=== PATIENT | female | born 1955 | race Caucasian/White ===

== ENCOUNTER 2016-09-05 13:38 | Emergency (ER) | payer BC ==
[2016-09-05] MEDS ORDERED: Ibuprofen TAB* 600 MG PO ONE (15:14)
--- NOTE | 2016-09-05 15:40 | UC ---
UC General HPI - HPI Summary HPI Summary: FLu like symptoms started 1 day ago. fatique, [place] , body aches, woke with a fever this morning. currently febrile. lots of ear pressure. - History of Current Complaint Chief Complaint: UCGeneralIllness Stated Complaint: flu sxs Time Seen by Provider: 09/05/16 15:14 Hx Obtained From: Patient Onset/Duration: Sudden Onset, Lasting Days Timing: Constant Onset Severity: Moderate Current Severity: Severe Associated Signs & Symptoms: Positive: Cough, Fever, Headache - Allergy/Home Medications Allergies/Adverse Reactions: Allergies Allergy/AdvReac Type Severity Reaction Status Date / Time Erythromycin Allergy Intermediate Diarrhea Verified 09/05/16 15:03 environmental Allergy Eyes Uncoded 09/05/16 15:03 Itchy/Swollen/Red/Watery PMH/Surg Hx/FS Hx/Imm Hx Previously Healthy: Yes Endocrine History Of: Reports: Thyroid Disease - hypothyroid Denies: Diabetes, Hyperthyroidism, Hypothyroidism, Dyslipidemia Cardiovascular History Of: Denies: Cardiac Disorders, Hypertension, Pacemaker/ICD, Myocardial Infarction , Congestive Heart Failure, Atrial Fibrillation, Deep Vein Thrombosis, Bleeding Disorders Respiratory History Of: Reports: Asthma - noted, recent exacerbation. Finished prednisone taper and abx recently. Denies: COPD, Bronchitis, Pneumonia, Pulmonary Embolism GI/ History Of: Denies: Gastroesophageal Reflux, Ulcer, Gastrointestinal Bleed, Gall Bladder Disease, Kidney Stones, Diverticulitis, Renal Disease, Urosepsis Neurological History Of: Denies: TIA, CVA, Dementia, Seizures, Migraine Psychological History Of: Denies: Anxiety, Depression, Bipolar Disorder, Schizophrenia, Post Traumatic Stress Disorder Cancer History Of: Denies: Lung Cancer, Colorectal Cancer, Breast Cancer, Prostate Cancer, Cervical Cancer Other History Of: Negative For: HIV, Hepatitis B, Hepatitis C, Anticoagulant Therapy - Surgical History Surgical History: Yes Surgery Procedure, Year, and Place: Tonsillectomy. . TUBE RIGHT- TYMPANIC - Family History Known Family History: Positive: Cardiac Disease, Hypertension Negative: Diabetes - Social History Alcohol Use: None Substance Use Type: None Smoking Status (MU): Never Smoked Tobacco Review of Systems Constitutional: Fever, Chills, Fatigue Skin: Negative Eyes: Negative ENT: Sore Throat, Ear Ache Respiratory: Cough Cardiovascular: Negative Gastrointestinal: Negative Genitourinary: Negative Motor: Negative Neurovascular: Negative Musculoskeletal: Myalgia Neurological: Headache Psychological: Negative All Other Systems Reviewed And Are Negative: Yes Physical Exam Triage Information Reviewed: Yes Appearance: Well-Nourished, Ill-Appearing, Pain Distress Vital Signs: Initial Vital Signs Temp 103.0 F 09/05/16 15:12 Pulse 90 09/05/16 15:12 Resp 16 09/05/16 15:12 BP 172/72 09/05/16 15:12 Pulse Ox 96 09/05/16 15:12 Vital Signs Reviewed: Yes Eye Exam: Normal Eyes: Positive: Conjunctiva Clear ENT: Positive: Hearing grossly normal, Pharyngeal erythema, Nasal congestion, TM bulging, TM red Dental Exam: Normal Neck exam: Normal Neck: Positive: Supple, Nontender, No Lymphadenopathy Respiratory Exam: Normal Respiratory: Positive: Chest non-tender, Lungs clear, Normal breath sounds Cardiovascular Exam: Normal Cardiovascular: Positive: RRR, No Murmur, Pulses Normal Abdominal Exam: Normal Abdomen Description: Positive: Nontender, No Organomegaly, Soft Bowel Sounds: Positive: Present Musculoskeletal Exam: Normal Neurological Exam: Normal Psychological Exam: Normal Skin Exam: Normal Course/Dx - Course Course Of Treatment: hx obtained, exam performed, medications reviewed, ibuprofen given, flu test performed and is positive. - Differential Dx - Multi-Symptom Provider Diagnoses: influenza A Discharge - Discharge Plan Condition: Stable Disposition: HOME Patient Education Materials: Influenza (ED) Additional Instructions: Get plenty of rest and increase your fluid intake. Continue with ibuprofen and Tylenol for pain and fever. Follow up with any increase in respiratory symtpoms.
[2016-09-05 15:54] VITALS: BP 153/86
== END 2016-09-05 15:54 | disposition home or self-care (01) ==
LOC: UCCORT 13:38
DX: J10.1 Influenza due to other identified influenza virus with other respiratory manifestations (principal); R03.0 Elevated blood-pressure reading, without diagnosis of hypertension; Z88.1 Allergy status to other antibiotic agents
CPT/HCPCS: 87502; 99212; A9270-GY; G0463

== ENCOUNTER 2017-03-10 12:28 | Emergency (ER) | payer BC ==
[2017-03-10 14:19] VITALS: BP 156/80
--- NOTE | 2017-03-10 14:22 | UC ---
Knee Pain HPI - HPI Summary HPI Summary: Gradual onset R knee pain and swelling since kneeling down hard ("clumsy") 5 days ago. Since then developed R ankle swelling, has started taking lasix Rx by PCP. Pain worse with bending and weight-bearing. Denies twisting or sensation of instability. No fever or redness, no prior surgery on that knee. Just started increased dose of levothyroxine d/t TSH of 7. Level was measured because she had vaginal spotting despite 7 years post menopause. - History of Current Complaint Chief Complaint: UCLowerExtremity Stated Complaint: RIGHT KNEE INJURY Time Seen by Provider: 03/10/17 14:00 Hx Obtained From: Patient Hx Last Menstrual Period: 2009 ?: No Onset/Duration: Gradual Onset, Lasting Days Severity Initially: Mild Severity Currently: Moderate Character: Dull, Aching, Stiffness Aggravating Factor(s): Movement, Weight Bearing, Prolonged Standing, Stairs Alleviating Factor(s): Rest Associated Signs And Symptoms: Positive: Swelling. Negative: Fever, Numbness, Tingling Able to Bear Weight: Yes - Allergies/Home Medications Allergies/Adverse Reactions: Allergies Allergy/AdvReac Type Severity Reaction Status Date / Time Erythromycin Allergy Intermediate Diarrhea Verified 03/10/17 13:53 environmental Allergy Eyes Uncoded 03/10/17 13:53 Itchy/Swollen/Red/Watery PMH/Surg Hx/FS Hx/Imm Hx Endocrine History: Thyroid Disease Respiratory History: Asthma Other History Of: Negative For: HIV, Hepatitis B, Hepatitis C, Anticoagulant Therapy - Surgical History Surgical History: Yes Surgery Procedure, Year, and Place: Tonsillectomy. . TUBE RIGHT- TYMPANIC - Family History Known Family History: Positive: Cardiac Disease, Hypertension Negative: Diabetes - Social History Occupation: Employed Full-time - daycare provider Lives: With Family Alcohol Use: None Substance Use Type: None Smoking Status (MU): Never Smoked Tobacco Review of Systems Constitutional: Negative Skin: Negative Eyes: Negative ENT: Negative Respiratory: Negative Cardiovascular: Negative Gastrointestinal: Negative Genitourinary: Negative Motor: Negative Neurovascular: Negative Musculoskeletal: Arthralgia, Decreased ROM, Edema Neurological: Negative Psychological: Negative Is Patient Immunocompromised?: No All Other Systems Reviewed And Are Negative: Yes Physical Exam Triage Information Reviewed: Yes Appearance: Well-Appearing, Pain Distress - mild, Obese Vital Signs: Initial Vital Signs Temp 99 F 03/10/17 13:40 Pulse 67 03/10/17 13:40 Resp 18 03/10/17 13:40 BP 173/94 03/10/17 13:40 Vital Signs Reviewed: Yes Eye Exam: Normal Eyes: Positive: Conjunctiva Clear ENT Exam: Normal ENT: Positive: Normal ENT inspection, Hearing grossly normal, Pharynx normal, TMs normal Dental Exam: Normal Neck exam: Normal Neck: Positive: Supple, Nontender, No Lymphadenopathy Respiratory Exam: Normal Respiratory: Positive: Chest non-tender, Lungs clear, Normal breath sounds, No respiratory distress, No accessory muscle use Cardiovascular Exam: Normal Cardiovascular: Positive: RRR, No Murmur Musculoskeletal: Positive: Strength Intact, ROM Limited @ - R knee Neurological Exam: Normal Psychological Exam: Normal Skin Exam: Normal Knee Pain Course/Dx - Differential Dx/Diagnosis Provider Diagnoses: R knee pain Discharge - Discharge Plan Condition: Stable Disposition: HOME Prescriptions: Naproxen Sodium [Naproxen Sodium 500 MG TAB] 500 mg PO BID #20 tab Patient Education Materials: Knee Pain (ED) Referrals: Anat Gil MD [Primary Care Provider] - Additional Instructions: There are no bony injuries on x-ray, and I do not suspect a ligament tear at this time. Most other forms of knee pain will improve with time, protection, and anti-inflammatory medicine. If you do not have clear improvement in the next few days, please see [facility] for a recheck.
[2017-03-10] MEDS ORDERED: Naproxen TAB* 250 MG PO ONE (14:47)
--- NOTE | 2017-03-10 15:27 | RAD ---
Indication: Right knee pain. 4 views of the right knee demonstrates no fracture. Soft tissue swelling is noted. IMPRESSION: Soft tissue swelling without fracture.
== END 2017-03-10 15:22 | disposition home or self-care (01) ==
LOC: UCCORT 12:28
DX: M25.561 Pain in right knee (principal)
CPT/HCPCS: 99212; A9270-GY; G0463

== ENCOUNTER 2017-09-16 19:27 | Emergency (ER) | payer BC ==
--- OUTSIDE RECORDS SUMMARY | 2017-09-16 19:55 | XMS REPORT ---
:1955 External Reference #:[id number] Author Organization [facility], Address [address] [address] Phone [phone] Care Team Providers Name Role Phone Shara Soto M.D. Care Team Information Sawdust Drier Unavailable Anat Gil M.D. Primary Care Physician Unavailable Payers Type Date Identification Numbers Payment Provider Subscriber Commercial Effective: Policy Number: [employer] Ervinmarycruz [employer] 2016 [id number] PayID: [id number] [address] [address] [place] [address] Problems Description No Information Family History Date Family Member(s) Problem(s) Comments Maternal Grandmother Breast Cancer Age 65 Social History Type Date Description Comments Lives With Spouse Cigarette Use 07/15/2017 Never Smoked Cigarettes ETOH Use Occasionally consumes beer Allergies, Adverse Reactions, Alerts Date Description Reaction Status Severity Comments 07/09/2017 Erythromycin GI issues active Medications Medication Date Status Form Strength Qnty SIG Indications Ordering Provider Ibuprofen Active Tablets 600mg 40tabs 1 by Nicolasa 018 mouth JALEEL Howell every 6 hours as needed pain after surgery Hydrocodone-A Active Tablets 5-325mg 40tabs 1-2 by Handy cuadra 018 mouth MD Kalpana every 4-6 hours as needed pain Flovent HFA Active Aerosol 44mcg/Act 2 x daily Unknown 000 Flonase Active Suspension 50mcg/Act once Unknown Allergy 000 daily Relief Synthroid Active Tablets 125mcg 1 by Unknown 000 mouth every day Megestrol Active Tablets 40mg 2 by Unknown Acetate 000 mouth twice a day Vital Signs Date Vital Result Comment 07/15/2017 BP Systolic 170 mmHg BP Diastolic 92 mmHg Heart Rate 66 /min Respiratory Rate 16 /min Height 61.5 inches 5'1.50" Weight 242.00 lb BSA (Body Surface Area) 2.06 m2 BMI (Body Mass Index) 45.0 kg/m2 Height in cm's 156.2 cm Weight in kg's 109.771 Results Description No Information Procedures Description No Information Encounters Type Date Location Provider CPT E/M Dx Office Visit 07/15/2017 9:00a [facility] [place] [place] [address] [address]02 pc Plan of Care Future Appointment(s):09/02/2017 2:45 pm - Handy Acuna MD at [facility],
[2017-09-16 20:12] VITALS: BP 186/79
[2017-09-16] MEDS ORDERED: Albuterol/Ipratropium NEB.SOL* Albuterol 2.5 MG/Ipratropium 0.5 MG 3 ML INH ONE (20:41)
--- NOTE | 2017-09-16 20:50 | ED ---
Respiratory - HPI Summary HPI Summary: Pt with body aches, cough with clear sputum and fatigue progressive x 36 hours. Pt reports tactile fevers and chills. Pt states chest feels tight with breaths. No abd pain no n/v/d. no rash no sick contact no tobacco + head congestion , + left ear pain pt's medications reviewed this visit - History of Current Complaint Chief Complaint: UCGeneralIllness Stated Complaint: COUGH,BODY ACHES Time Seen by Provider: 09/16/17 20:08 Hx Obtained From: Patient, Family/Shelter Advocate - Onset/Duration: Gradual Onset, Lasting Hours - 36 hour Initial Severity: Mild Current Severity: Mild Pain Intensity: 4 Character: Wheezing, Cough (Nonproductive) Sputum Amount: None Sputum Color: Clear Aggravating Factor(s): URI Associated Signs and Symptoms: Fever, URI, Wheezing, Chest Pain with Cough - Risk Factors Status Asthmaticus Risk Factors: Negative - Allergy/Home Medications Allergies/Adverse Reactions: Allergies Allergy/AdvReac Type Severity Reaction Status Date / Time MS Erythromycin Allergy Intermediate Diarrhea Verified 09/16/17 20:00 [Erythromycin] erythromycin base AdvReac Diarrhea Verified 09/16/17 20:00 environmental Allergy Eyes Uncoded 03/10/17 13:53 Itchy/Swollen/Red/Watery Home Medications: Home Medications Acetaminophen [Tylenol Extra Strength] 750 mg PO Q6H PRN 09/16/17 [History Confirmed 09/16/17] Guaifenesin/Dextromethorphan [Guaifenesin Dm Syrup] 10 ml PO DAILY PRN 09/16/17 [History Confirmed 09/16/17] PMH/Surg Hx/FS Hx/Imm Hx Previously Healthy: Yes Endocrine/Hematology History: Reports: Hx Thyroid Disease - hypothyroid Denies: Hx Anticoagulant Therapy, Hx Diabetes Cardiovascular History: Denies: Hx Congestive Heart Failure, Hx Deep Vein Thrombosis, Hx Hypertension , Hx Myocardial Infarction, Hx Pacemaker/ICD Respiratory History: Reports: Hx Asthma - noted, recent exacerbation. Finished prednisone taper and abx recently. Denies: Hx Chronic Obstructive Pulmonary Disease (COPD), Hx Lung Cancer, Hx Pneumonia, Hx Pulmonary Embolism GI History: Denies: Hx Gall Bladder Disease, Hx Gastrointestinal Bleed, Hx Ulcer, Hx Urosepsis History: Denies: Hx Kidney Stones, Hx Renal Disease Neurological History: Denies: Hx Dementia, Hx Migraine, Hx Seizures, Hx Transient Ischemic Attacks (TIA) Psychiatric History: Denies: Hx Anxiety, Hx Depression, Hx Schizophrenia, Hx Bipolar Disorder - Surgical History Surgery Procedure, Year, and Place: Tonsillectomy. . TUBE RIGHT- TYMPANIC. HYSTERECTOMY,SALPINGECTOMY, OOPHORECTOMY. RIGHT KNEE MENISCUS SX Infectious Disease History: No Infectious Disease History: Denies: Hx Clostridium Difficile, Hx Hepatitis, Hx Human Immunodeficiency Virus (HIV), Hx of Known/Suspected MRSA, Hx Shingles, Hx Tuberculosis, Hx Known/ Suspected VRE, Hx Known/Suspected VRSA, History Other Infectious Disease, Traveled Outside the [place] in Last 30 Days - Family History Known Family History: Positive: Cardiac Disease, Hypertension Negative: Diabetes - Social History Alcohol Use: Occasionally Substance Use Type: Reports: None Smoking Status (MU): Never Smoked Tobacco Review of Systems Constitutional: Negative Positive: Fever, Chills, Fatigue Positive: Ear Ache, Nasal Discharge Positive: Other - tight with cough in chest Positive: Cough Gastrointestinal: Negative All Other Systems Reviewed And Are Negative: Yes Physical Exam Triage Information Reviewed: Yes Vital Signs On Initial Exam: Initial Vitals Temp Pulse Resp BP Pulse Ox 100 F 77 16 186/79 99 09/16/17 20:04 09/16/17 20:04 09/16/17 20:04 09/16/17 20:04 09/16/17 20:04 Vital Signs Reviewed: Yes Appearance: Positive: Well-Nourished. Negative: No Pain Distress - coarse, persistent cough Skin: Positive: Warm, Skin Color Reflects Adequate Perfusion, Dry Head/Face: Positive: Normal Head/Face Inspection Eyes: Positive: Normal, EOMI, TL ENT: Positive: Normal ENT inspection, Hearing grossly normal, Pharynx normal, Nasal congestion, Uvula midline Neck: Positive: Supple, Nontender, No Lymphadenopathy Respiratory/Lung Sounds: Positive: Wheezes, Other - coarse cough, scattered wheeze, no rhonci Cardiovascular: Positive: Normal, RRR, Pulses are Symmetrical in both Upper and Lower Extremities Abdomen Description: Positive: Nontender, No Organomegaly, Soft Bowel Sounds: Positive: Present Musculoskeletal: Positive: Normal, Strength/ROM Intact Neurological: Positive: Normal, Sensory/Motor Intact, Alert, Oriented to Person Place, Time Psychiatric: Positive: Normal AVPU Assessment: Alert - [place] Coma Scale Best Eye Response: 4 - Spontaneous Best Motor Response: 6 - Obeys Commands Best Verbal Response: 5 - Oriented Coma Scale Total: 15 Diagnostics - Vital Signs Vital Signs Temp Pulse Resp BP Pulse Ox 09/16/17 20:04 100 F 77 16 186/79 99 - Laboratory Lab Results: Lab Results 09/16/17 Range/Units 20:27 Influenza A (Rapid) Negative (Negative) Influenza B (Rapid) Negative (Negative) Lab Statement: Any lab studies that have been ordered have been reviewed, and results considered in the medical decision making process. - EKG No standard instances Cardiac Rate: NL - 83 EKG Rhythm: Sinus Rhythm ST Segment: Normal Ectopy: None Re-Evaluation - Re-Evaluation First Eval Change: Improved - Pt markedly improved fllowing neb cough monimal. no chest tightness cxr neg Rx prednisone MDI (pt has) with spacer hydrate motrin/apap return precuations pt comfortable and in agreement with plan Disposition - Course Assessment/Plan: ppt with congestion, cough, URI, myalgia progressive x 36 hours. pt with coarse cough on exam. pt reports chest feels tight with cough - will check EKG. if non concerning - will give neb and cxr and re-assess. no h/o htn,. hld, dm, tobacco. pt and so in agreement with plan - Diagnoses Provider Diagnoses: URI (upper respiratory infection) Discharge - Sign-Out/Discharge Documenting (check all that apply): Discharge - Discharge Plan Condition: Stable Disposition: HOME Prescriptions: predniSONE TAB* [Deltasone TAB*] 50 mg PO DAILY #4 tab Patient Education Materials: Upper Respiratory Infection (ED) Referrals: Anat Gil MD [Primary Care Provider] - Additional Instructions: -Use your albuterol puffer - 2 puffs ever 4 hours today and tomorrow and then as needed. Use a spacer. -Take prednisone daily as prescribed -Stay well hydrated - avoid excess caffeine and all alcohol - eat regular, healthy meals - These infections are spread by oral secretions. Do not share eating or drinking utensils. Frequent hand washing is important. Clean items that may get your secretions on them such as cell phones, ipads, computer mouse, television remotes. Once you have start to feel better, change your pillowcase and your toothbrush - humidify the air in the room where you sleep - boil water, run a hot steam shower, vaporizer, cups of water by heat register - okay to take over the counter decongestant and cough medication - get plenty of restful sleep. -Contact your doctor to arrange a follow-up appointment this week. Call your doctor, return here or go to the emergency department with any questions or concerns - Billing Disposition and Condition Condition: STABLE Disposition: HOME
--- NOTE | 2017-09-16 21:00 | RAD ---
INDICATION: Cough and congestion COMPARISON: July 22, 2004 TECHNIQUE: PA and lateral dual-energy views were obtained. FINDINGS: Bones/Soft Tissues: There are no acute bony findings. Cardiomediastinal: The cardiomediastinal silhouette is top normal in size. Lungs: There are no infiltrates. There is minor left upper lobe scarring, unchanged. Pleura: There are no pleural effusions. Other: None IMPRESSION: NO ACTIVE DISEASE.
[2017-09-16] MEDS ORDERED: predniSONE TAB* 20 MG PO ONE (21:26)
== END 2017-09-16 21:43 | disposition home or self-care (01) ==
LOC: UCCORT 19:27
DX: J06.9 Acute upper respiratory infection, unspecified (principal); Z88.1 Allergy status to other antibiotic agents
CPT/HCPCS: 71046; 87502; 93005; 99212; A9270-GY; G0463; J7512

== ENCOUNTER 2018-06-02 19:15 | Emergency (ER) | payer BC ==
[2018-06-02 20:00] VITALS: BP 175/84
--- NOTE | 2018-06-02 20:36 | ED ---
Lower Extremity - HPI Summary HPI Summary: 62 yr old female with right knee pain. Onset of pain just prior to coming in here this evening. She slipped on a dish, and her right leg went out laterally. The patient reports Pain diffusely to the right knee and it hurts to bear weight. Pain is moderate. The patient had meniscus repair of the right knee in recent past by [facility]. - History of Current Complaint Chief Complaint: UCLowerExtremity Stated Complaint: RIGHT KNEE INJURY Time Seen by Provider: 06/02/18 20:20 Hx Last Menstrual Period: 2009 Pain Intensity: 7 - Allergies/Home Medications Allergies/Adverse Reactions: Allergies Allergy/AdvReac Type Severity Reaction Status Date / Time erythromycin base AdvReac Diarrhea Verified 09/16/17 20:00 environmental Allergy Eyes Uncoded 03/10/17 13:53 Itchy/Swollen/Red/Watery PMH/Surg Hx/FS Hx/Imm Hx Endocrine/Hematology History: Reports: Hx Thyroid Disease - hypothyroid Denies: Hx Anticoagulant Therapy, Hx Diabetes Cardiovascular History: Denies: Hx Congestive Heart Failure, Hx Deep Vein Thrombosis, Hx Hypertension , Hx Myocardial Infarction, Hx Pacemaker/ICD Respiratory History: Reports: Hx Asthma - noted, recent exacerbation. Finished prednisone taper and abx recently. Denies: Hx Chronic Obstructive Pulmonary Disease (COPD), Hx Lung Cancer, Hx Pneumonia, Hx Pulmonary Embolism GI History: Denies: Hx Gall Bladder Disease, Hx Gastrointestinal Bleed, Hx Ulcer, Hx Urosepsis History: Denies: Hx Kidney Stones, Hx Renal Disease Neurological History: Denies: Hx Dementia, Hx Migraine, Hx Seizures, Hx Transient Ischemic Attacks (TIA) Psychiatric History: Denies: Hx Anxiety, Hx Depression, Hx Schizophrenia, Hx Bipolar Disorder - Surgical History Surgery Procedure, Year, and Place: Tonsillectomy. . TUBE RIGHT- TYMPANIC. HYSTERECTOMY,SALPINGECTOMY, OOPHORECTOMY. RIGHT KNEE MENISCUS SX Infectious Disease History: No Infectious Disease History: Denies: Hx Clostridium Difficile, Hx Hepatitis, Hx Human Immunodeficiency Virus (HIV), Hx of Known/Suspected MRSA, Hx Shingles, Hx Tuberculosis, Hx Known/ Suspected VRE, Hx Known/Suspected VRSA, History Other Infectious Disease, Traveled Outside the [place] in Last 30 Days - Family History Known Family History: Positive: Cardiac Disease, Hypertension Negative: Diabetes - Social History Alcohol Use: Occasionally Substance Use Type: Reports: None Smoking Status (MU): Never Smoked Tobacco Review of Systems Constitutional: Negative Positive: Headache All Other Systems Reviewed And Are Negative: Yes Physical Exam Triage Information Reviewed: Yes Vital Signs On Initial Exam: Initial Vitals Temp Pulse Resp BP Pulse Ox 98.1 F 61 16 175/84 99 06/02/18 19:54 06/02/18 19:54 06/02/18 19:54 06/02/18 19:54 06/02/18 19:54 Vital Signs Reviewed: Yes Appearance: Positive: Well-Appearing, No Pain Distress, Obese Skin: Positive: Warm, Skin Color Reflects Adequate Perfusion Head/Face: Positive: Normal Head/Face Inspection Eyes: Positive: EOMI ENT: Positive: Normal ENT inspection Neck: Positive: Nontender Respiratory/Lung Sounds: Positive: Clear to Auscultation, Breath Sounds Present Cardiovascular: Positive: RRR. Negative: Murmur Abdomen Description: Positive: Nontender Musculoskeletal: Positive: Other - right knee with diffuse tenderness without obvious deformity, swelling, bruise. Neurological: Positive: Sensory/Motor Intact, Alert, Oriented to Person Place, Time, CN Intact II-III Psychiatric: Positive: Normal - [place] Coma Scale Best Eye Response: 4 - Spontaneous Best Motor Response: 6 - Obeys Commands Best Verbal Response: 5 - Oriented Coma Scale Total: 15 Diagnostics - Vital Signs Vital Signs Temp Pulse Resp BP Pulse Ox 06/02/18 19:54 98.1 F 61 16 175/84 99 - Laboratory Lab Statement: Any lab studies that have been ordered have been reviewed, and results considered in the medical decision making process. - Radiology right knee Radiology Interpretation Completed By: ED Physician - effusion right knee, no acute Fx. Lower Extremity Course/Dx - Course Course Of Treatment: 62 yr old with trauma to knee, no Fx by my reading. Radiology reading pending. - Diagnoses Provider Diagnoses: Internal derangement of right knee, Hypertension Discharge - Sign-Out/Discharge Documenting (check all that apply): Patient Departure All imaging exams completed and their final reports reviewed: No - Discharge Plan Condition: Good Disposition: HOME Patient Education Materials: Knee Pain (ED) Referrals: Anat Gil MD [Primary Care Provider] - 2 Days - Billing Disposition and Condition Condition: GOOD Disposition: Home
== END 2018-06-02 21:35 | disposition home or self-care (01) ==
LOC: UCCORT 19:15
DX: W18.40XA Slipping, tripping and stumbling without falling, unspecified, initial encounter (principal); Y93.9 Activity, unspecified; Y92.9 Unspecified place or not applicable; I10 Essential (primary) hypertension; M25.461 Effusion, right knee; Z88.1 Allergy status to other antibiotic agents; M23.91 Unspecified internal derangement of right knee
CPT/HCPCS: 99213; G0463